=== PATIENT | female | born 1990 | race Caucasian/White ===

== ENCOUNTER 2020-06-19 01:25 | Emergency (ER) | payer MEDICAID ==
[2020-06-19] MEDS ORDERED: Ketorolac 10 MG Tab ONE ×2 (01:49→02:00)
[2020-06-19] MEDS ORDERED: Amoxicillin 500 MG Cap ONE ×2 (01:49→02:00)
[2020-06-19] MEDS: Ketorolac 60 MG/2 ML SDV IM ONE (02:05)
--- NOTE | 2020-06-19 02:06 | EDM.PDOC ---
ED HPI GENERAL MEDICAL PROBLEM - General Chief Complaint: General Stated Complaint: toothache Time Seen by Provider: 06/19/20 01:51 Source of Information: Reports: Patient History Limitations: Reports: No Limitations - History of Present Illness INITIAL COMMENTS - FREE TEXT/NARRATIVE: States that she started having pain to the lower left jaw where she has been having a tooth ache about 8:30 last evening and has been steadily getting worse. Pain will go up into her ear and then behind it to the side of her head and down into her neck. She denies any fever with it. States that it does hurt to bite down on that area. Also questions if she is getting a wisdom tooth on that side. Denies any injury to the area. Denies any pain to the jaw when open and closed. Onset: Gradual Onset Date: 06/18/20 Location: Reports: Head, Face Quality: Reports: Sharp, Stabbing Treatments ABLE SEAMAN: Reports: NSAIDS Left Face/Facial Pain Score (Numeric/FACES): 9 - Related Data Allergies Allergy/AdvReac Type Severity Reaction Status Date / Time No Known Allergies Allergy Verified 06/19/20 01:30 Home Meds: Home Meds Escitalopram Oxalate [Lexapro] 20 mg PO DAILY 06/19/20 [History] Past Medical History Musculoskeletal History: Reports: Fracture Neurological History: Reports: Migraines, Other (See Below) Other Neuro History: MIGRAINES A CHILD BUT NOT AN ADULT Psychiatric History: Reports: Anxiety, Depression - Past Surgical History Female Surgical History: Reports: Section, Tubal Ligation Social & Family History - Tobacco Use Tobacco Use Status *Q: Current Every Day Tobacco User Years of Tobacco use: 12 Packs/Tins Daily: 0.5 ED ROS GENERAL - Review of Systems Review Of Systems: See Below Constitutional: Denies: Fever, Chills HEENT: Reports: Dental Pain, Ear Pain Respiratory: Reports: No Symptoms Musculoskeletal: Reports: Neck Pain Neurological: Reports: Headache ED EXAM, GENERAL - Physical Exam Exam: See Below Exam Limited By: No Limitations General Appearance: Alert, WD/WN Ears: Normal External Exam, Normal Canal, Normal TMs Throat/Mouth: Normal Inspection, Other (swelling noted to the left lower gum line. Tender with palpation.) Head: Atraumatic, Normocephalic Neck: Normal Inspection, Supple, Non-Tender, Full Range of Motion, Other (Not a ble to reproduce pain to neck and head. She relates that it is not positional but radiates from the jaw line.) Respiratory/Chest: No Respiratory Distress, Lungs Clear, Normal Breath Sounds Cardiovascular: Regular Rate, Rhythm Course - Vital Signs Last Recorded V/S: Last Vital Signs Temp 96.4 F L 06/19/20 01:25 Pulse 78 06/19/20 01:25 Resp 15 06/19/20 01:25 BP 133/75 06/19/20 01:25 Pulse Ox 99 06/19/20 01:25 - Orders/Labs/Meds Meds: Medications Discontinued Medications Generic Name Dose Route Start Last Admin Trade Name Maria Esther PRN Reason Stop Dose Admin Amoxicillin 1 packet 06/19/20 02:01 06/19/20 02:10 Take Home: Amoxicillin 500 Mg, 2 Cap Pack PO 06/19/20 02:02 1 packet ONETIME ONE Administration Ketorolac Tromethamine 60 mg 06/19/20 01:59 06/19/20 02:05 Toradol IM 06/19/20 02:00 60 mg ONETIME ONE Administration Ketorolac Tromethamine 1 packet 06/19/20 02:00 06/19/20 02:10 Take Home: Ketorolac 10 Mg, 4 Tab Pack PO 06/19/20 02:01 1 packet ONETIME ONE Administration Departure - Departure Time of Disposition: 01:59 Disposition: Home, Self-Care 01 Condition: Good Clinical Impression: Pain, dental - Discharge Information *PRESCRIPTION DRUG MONITORING PROGRAM REVIEWED*: Not Applicable *COPY OF PRESCRIPTION DRUG MONITORING REPORT IN PATIENT RESHMA: Not Applicable Referrals: PCP,None [Primary Care Provider] - Forms: ED Department Discharge Additional Instructions: take acetaminophen 650 mg and ibuprofen 400 mg at the same time up to 4 times a day for pain as needed. If that does not work can try Toradol 10 mg up to 3 times a day- prescription will be sent to drug store. Start amoxicillin 500 mg three times a day. [facility] [place] to [facility] tomorrow. warm pack to jaw for comfort as needed. Make appt to see dentist. Sepsis Event Note (ED) - Evaluation Sepsis Screening Result: No Definite Risk - Focused Exam Vital Signs: Vital Signs Temp Pulse Resp BP Pulse Ox 06/19/20 01:25 96.4 F L 78 15 133/75 99 - Problem List & Annotations (1) Pain, dental SNOMED Code(s): 18354763 Code(s): K08.89 - OTHER SPECIFIED DISORDERS OF TEETH AND SUPPORTING STRUCTURES Status: Acute Priority: High - Problem List Review Problem List Initiated/Reviewed/Updated: Yes
[2020-06-19] MEDS: Take Home: Ketorolac 10 MG Tab, 4 Tab Pack PO ONE (02:10)
[2020-06-19] MEDS: Take Home: Amoxicillin 500 MG Cap, 2 Cap Pack PO ONE (02:10)
== END 2020-06-19 02:25 | disposition home or self-care (01) ==
LOC: CC.ED 01:25
DX: K08.89 Other specified disorders of teeth and supporting structures (principal); Z72.0 Tobacco use; Z79.899 Other long term (current) drug therapy
CPT/HCPCS: 96372; 99282; A9270-GY; J1885